=== PATIENT | female | born 1950 | race Caucasian/White ===

== ENCOUNTER → 2022-08-07 | Outpatient (CLI) | payer OTHER | END | disposition home or self-care (01) | LOC: LAB SHORT 14:40 → LAB 14:40 | DX: R31.9 Hematuria, unspecified (principal) | CPT/HCPCS: 87086 ==

== ENCOUNTER 2023-10-01 10:12 | Emergency (ER) | payer OTHER ==
[~2023-10-01] VITALS: Ht 157.5 cm; Wt 68.0 kg
[2023-10-01 10:29] VITALS: BP 150/90
[2023-10-01] MEDS ORDERED: FAMO40 PO (10:31)
[2023-10-01] MEDS ORDERED: AMOCLA875 PO (12:03)
== END 2023-10-01 12:19 | disposition home or self-care (01) ==
LOC: ER 10:12
DX: M79.644 Pain in right finger(s) (principal); Z23 Encounter for immunization; S61.254A Open bite of right ring finger without damage to nail, initial encounter; Z91.048 Other nonmedicinal substance allergy status; W54.0XXA Bitten by dog, initial encounter
CPT/HCPCS: 90471; 90714; 93971; 99283-25

== ENCOUNTER 2024-09-19 07:29 | Day surgery (SDC) | payer OTHER ==
[~2024-09-19] VITALS: Ht 157.5 cm; Wt 69.6 kg
[2024-09-19] VITALS (22 sets, daily range): BP systolic 91–152; BP diastolic 57–104
[~2024-09-19 07:29] MED LIST: AMOCLA875 PO; FAMO40 PO; Lactated Ringer's 1,000 ML IV SCH
--- NOTE | 2024-09-19 08:06 | NUR ---
Ambulatory in Day Surgery WITH STEADY GAIT. History, Chart, Medications and Allergies reviewed before start of procedure. Pre-Op teaching done. Pt verbalizes understanding. Patient States Post-Procedure ride home has been arranged WITH [facility].
[2024-09-19] MEDS ORDERED: Benzocaine Oral Spray 0.5ML UD ONE (08:12)
[2024-09-19] MEDS ORDERED: propofoL 40 ML IV ONE (08:12)
--- NOTE | 2024-09-19 08:25 | NUR ---
09/19/24 0825 Yaneli Galloway CONFIRMED AND REVIEWED H&P, MEDCICATIONS, ALLERGIES, MEDICAL HISTORY, RESPIRATORY HISTORY, VITAL SIGNS, 3-LEAD EKG, CONSENTS, AND PHYSICIAN ORDERS. PATIENT CONFIRMS NPO STATUS AND AGREES WITH SCHEDULED PROCEDURE. MONITOR INTACT WITH CONTINUOUS PULSE OXIMETRY, CAPNOGRAPHY, 3-LEAD EKG, INTERMITTENT BP. SUPPLEMENTAL O2 TO BE TITRATED THROUGHOUT PROCEDURE TO MAINTAIN O2 SATURATION ABOVE 90%. PATIENT DETERMINED TO BE ASA APPROPRIATE FOR PROPOFOL SEDATION PRIOR TO START OF PROCEDURE BY DR. CHATMAN.
--- NOTE | 2024-09-19 09:20 | NUR ---
Discharge instructions reviewed with patient. Patient verbalizes understanding. Copy given to patient to take home. Patient up to Ambulate independently. Gait steady. Discharged via wheelchair to private car for ride home. ALL BELONGINGS RETURNED TO PATIENT.
== END 2024-09-19 23:00 | disposition home or self-care (01) ==
LOC: ORSCMMR 07:29 → ORD 08:30 → ORSCMMR 08:30
PROVIDERS: Internal Medicine Gastroenterology
PROC: 0DBL8ZX Excision of Transverse Colon, Via Natural or Artificial Opening Endoscopic, Diagnostic (ICD-10-PCS; principal; 2024-09-19 08:30)
PROC: 0DBN8ZX Excision of Sigmoid Colon, Via Natural or Artificial Opening Endoscopic, Diagnostic (ICD-10-PCS; principal; 2024-09-19 08:30)
PROC: 0DB58ZX Excision of Esophagus, Via Natural or Artificial Opening Endoscopic, Diagnostic (ICD-10-PCS; principal; 2024-09-19 08:30)
PROC: 0DB48ZX Excision of Esophagogastric Junction, Via Natural or Artificial Opening Endoscopic, Diagnostic (ICD-10-PCS; principal; 2024-09-19 08:30)
DX: K21.00 Gastro-esophageal reflux disease with esophagitis, without bleeding (principal); K22.70 Barrett's esophagus without dysplasia; K44.9 Diaphragmatic hernia without obstruction or gangrene; Z12.11 Encounter for screening for malignant neoplasm of colon; D12.3 Benign neoplasm of transverse colon; K63.5 Polyp of colon; K64.8 Other hemorrhoids; Z86.0100 Personal history of colon polyps, unspecified; Z79.899 Other long term (current) drug therapy
CPT/HCPCS: 88305; A9270; J2704; J7120

== ENCOUNTER 2024-12-04 06:11 | Day surgery (SDC) | payer OTHER ==
[~2024-12-04] VITALS: Ht 157.5 cm; Wt 71.9 kg
[~2024-12-04 06:11] MED LIST changes: -Lactated Ringer's 1,000 ML IV SCH
[2024-12-04] MEDS ORDERED: CeFAZolin Sodium 2,000 MG VIAL ONE (06:24)
[2024-12-04] MEDS ORDERED: ASPIRIN REGIMEN81 MG PO (06:47)
[2024-12-04] MEDS ORDERED: LORAZEPAM0.5 MG PO (06:48)
[2024-12-04] MEDS ORDERED: OMEP20ER PO (06:48)
--- NOTE | 2024-12-04 07:01 | NUR ---
12/04/24 0701 HUNTER JORDAN PT HAS WOUND ON LEFT POSTERIOR HAND FROM DOG SCRATCH ONE WEEK AGO. PHOTO SENT TO DR DUDLEY WHO CX PROCEDURE TODAY. PT TOLD TO CALL OFICE FOR A WOUND CHECK AFTER CLEANING W/ SOAP AND H2O DAILY AND COVERING WITH STERILE BANDGE AND WRAPPING W/ COBAN; THEN RESCHEDULE PROCEDURE.
[2024-12-04 07:03] VITALS: BP 138/83
== END 2024-12-04 07:08 | disposition home or self-care (01) ==
LOC: ORSCSDS 06:11
DX: M18.11 Unilateral primary osteoarthritis of first carpometacarpal joint, right hand (principal); Z53.9 Procedure and treatment not carried out, unspecified reason
CPT/HCPCS: J0690